=== PATIENT | female | born 1965 | race Two or more races ===

== ENCOUNTER 2025-05-03 10:23 | Inpatient (IN) | payer OTHER ==
[~2025-05-03] VITALS: Ht 170.2 cm; Wt 90.7 kg
[2025-05-03] MEDS: IV NS 0.9% 500 ML BAG IV ONE (10:48)
[2025-05-03 11:00] LABS: PLATELET COUNT (AUTO) 249 K/uL (150-450); RED BLOOD CELL COUNT(AUTO) 5.40 MIL/uL (4.0-5.2); RED CELL DISTRIBUTION WIDTH 14.2 % (11.5-15.0); WHITE BLOOD COUNT (AUTO) 15.5 K/uL (4.3-11.0)
[2025-05-03 11:07] LABS: CALCIUM, SERUM 9.2 mg/dL (8.5-10.1); CREATININE 0.9 mg/dL (0.6-1.3); SODIUM SERUM 132.0 mmol/L (136-145); UREA NITROGEN, BLOOD 15.0 mg/dL (7-18)
[2025-05-03 11:15] LABS: ASPARTATE AMINOTRANSFERASE 24.0 U/L (15-37); TOTAL PROTEIN, SERUM 8.4 g/dL (6.4-8.2)
[2025-05-03] MEDS: PIPERACILLIN /TAZOBACTAM 3.375 G in IV D5W 50 ML IV ONE (12:00)
[2025-05-03] MEDS ORDERED: ONDANSETRON HCL/PF 4 MG/2 ML VIAL ONE (12:00)
[2025-05-03] MEDS: ONDANSETRON HCL/PF - ER 4 MG/2 ML VIAL IV ONE (12:03)
[2025-05-03] MEDS ORDERED: ENAL10TA39 PO (12:41)
[2025-05-03] MEDS ORDERED: DEXTROSE 50%-WATER 50 ML DISP.SYRIN IV PRN ×2 (15:30→16:00)
[2025-05-03] MEDS ORDERED: *INSULIN REGULAR(HUMULIN R)HUM 100 UNIT/ML VIAL SQ PRN (15:30)
[2025-05-03] MEDS ORDERED: ONDANSETRON HCL/PF 4 MG/2 ML VIAL IVP PRN ×2 (15:30→16:00)
[2025-05-03] MEDS ORDERED: MAGNESIUM HYDROXIDE 30 ML UDC PO PRN ×2 (15:30→16:00)
[2025-05-03] MEDS ORDERED: Z GUARD REMEDY 4 OZ OINT TP PRN ×2 (15:30→16:00)
[2025-05-03] MEDS ORDERED: MAG HYDROX/AL HYDROX/SIMETH 30 ML UDC PO PRN ×2 (15:30→16:00)
[2025-05-03] MEDS ORDERED: IV NS 0.9% 1,000 ML IV PRN (15:30)
[2025-05-03] MEDS ORDERED: INSULIN REGULAR, HUMAN 100 UNIT/ML 3 ML VIAL SQ PRN (15:30)
[2025-05-03] MEDS ORDERED: ACETAMINOPHEN 325 MG TABLET PO PRN (15:30)
[2025-05-03] MEDS ORDERED: DOSING PER PHARMACY-ZOSYN IV 1 EA EA XX PRN ×2 (16:00→16:15)
[2025-05-03] MEDS: IV NS 0.9% 1,000 ML IV PRN (16:32)
[2025-05-03] MEDS: BLOOD SUGAR DIAGNOSTIC 1 EACH STRIP VI SCH (17:30)
[2025-05-03] MEDS ORDERED: BLOOD SUGAR DIAGNOSTIC 1 EACH STRIP VI SCH (17:30)
[2025-05-03] MEDS: PIPERACILLIN /TAZOBACTAM 3.375 G in IV D5W 100 ML IV SCH (17:40)
[2025-05-03 20:00] VITALS: BP 133/76; TEMP 99.1; O2SAT 98
[2025-05-03] MEDS: ACETAMINOPHEN 325 MG TABLET PO PRN (21:15)
[2025-05-03] MEDS: *INSULIN REGULAR(HUMULIN R)HUM 100 UNIT/ML VIAL SQ PRN (22:08)
[2025-05-04 04:00] VITALS: BP 127/74; TEMP 98.6; O2SAT 99
[2025-05-04 08:00] VITALS: BP 120/69; TEMP 97.9; O2SAT 99
[2025-05-04] MEDS ORDERED: LEVO500T90 PO (09:22)
[2025-05-04 10:26] VITALS: TEMP 98.6
[2025-05-04] MEDS: INSULIN REGULAR, HUMAN 100 UNIT/ML 3 ML VIAL SQ PRN (12:53)
== END 2025-05-04 15:04 | disposition home or self-care (01) | DRG 372 ==
LOC: ER 10:31 → MEDSG1 16:25
PROVIDERS: ADMIT Internal Medicine; ATTEND Internal Medicine
DX: A04.9 Bacterial intestinal infection, unspecified (principal); E87.1 Hypo-osmolality and hyponatremia; I10 Essential (primary) hypertension; M19.90 Unspecified osteoarthritis, unspecified site; E11.9 Type 2 diabetes mellitus without complications; E66.9 Obesity, unspecified; E86.1 Hypovolemia; K59.00 Constipation, unspecified; K76.0 Fatty (change of) liver, not elsewhere classified; Z68.31 Body mass index [BMI] 31.0-31.9, adult
CPT/HCPCS: 36415; 80048-TC; 80076-TC; 82962-TC; 83690-TC; 85025-TC; G0378; J2405; J2543; J7040; J7060